=== PATIENT | female | born 1970 | race Caucasian/White ===

== ENCOUNTER 2020-02-29 14:03 | Outpatient (REF) | payer MEDICAID, SELFPAY | END 2020-02-29 14:04 | disposition home or self-care (01) | LOC: HO.LAB 14:03 | PROVIDERS: Visit Provider Internal Medicine | DX: Z20.828 Contact with and (suspected) exposure to other viral communicable diseases (principal) | CPT/HCPCS: C9803; U0003 ==

== ENCOUNTER 2020-09-14 04:04 | Emergency (ER) | payer MEDICAID, SELFPAY ==
--- NOTE | 2020-09-14 | ECG_ITS ---
Test Reason : CHESTPAIN Blood Pressure : / mmHG Vent. Rate : 051 BPM Atrial Rate : 051 BPM P-R Int : 198 ms QRS Dur : 104 ms QT Int : 466 ms P-R-T Axes : 031 009 028 degrees QTc Int : 429 ms Sinus bradycardia Otherwise normal ECG No previous ECGs available Referred By: Generic ED Physician Electronically Signed By:YANNI EDDY MD
--- NOTE | ~2020-09-14 | CT_ITS ---
EXAMINATION: CT ABDOMEN AND PELVIS WITH CONTRAST CLINICAL INFORMATION: 49-year-old female with epigastric/right upper quadrant pain. COMPARISON: None TECHNIQUE: Multidetector volumetric images were obtained from the superior aspect of the liver through the pubic symphysis following administration 85 mL of Omnipaque 350 intravenous contrast. Sagittal and coronal reformatted images were obtained on the technologist's workstation. This CT examination was performed using dose optimization techniques as appropriate, variously including the following: *Automated exposure control *Adjustment of mA and/or kV according to patient size (this includes techniques or standardized protocols for targeted exams where dose is matched to indication/reason for exam; i.e. extremities or head) *Use of iterative reconstruction technique DLP: 930 mGy-cm FINDINGS: Visualized lung bases are well aerated. A few 1 mm pulmonary nodules are noted. The liver demonstrates normal size, contour and attenuation. The gallbladder is surgically absent. The pancreas, spleen and adrenal glands are unremarkable. The kidneys are normal in size and demonstrate symmetric enhancement status post IV contrast administration. No renal calculi or hydronephrosis of either kidney. Surgical changes of the stomach consistent with gastric bypass. Normal caliber loops of small and large bowel. Normal appendix. Normal caliber abdominal aorta. No retroperitoneal lymphadenopathy. Tiny fat-containing umbilical hernia. Scattered surgical clips of the abdominal wall. The bladder is normal in appearance. Unremarkable CT appearance of the uterus. No pelvic lymphadenopathy. Mild diffuse degenerative changes of the spine. CT/CT abdomen pelvis w con IMPRESSION: 1. No CT evidence for acute abnormality within the abdomen or pelvis. 2. A few 1 mm pulmonary nodules are noted within the lung bases. According to the UPDATED 2017 Fleischner Society recommendations, the advised follow-up imaging for solid nodules < 6 mm is: LOW RISK PATIENT: No routine follow-up. HIGH RISK PATIENT: Optional CT at 12 months.
[2020-09-14 04:13] VITALS: BP 125/63; PULSE 62; RESP 16; O2SAT 99; BMI 36.3
--- NOTE | 2020-09-14 04:26 | ED.CHESTPAIN ---
HPI - Chest Pain General Chief Complaint: Chest Pain Stated Complaint: SOB/chest pain Time Seen by Provider: 09/14/20 04:26 Source: patient History of Present Illness HPI narrative: 49-year-old female with history of gastric bypass and cholecystectomy who presents with epigastric pain that she describes as sharp in nature and radiating into the back and initially was rated as a 10/10 and associated with some nausea and states that the shortness of breath that she had was secondary to the pain. In addition, she experience some mild dizziness but at this time states that all of her symptoms have somewhat resolved. 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 Otherwise, she denies any fever, chills, sore throat, cough. Related Data Previous Rx's Medication Instructions Recorded omeprazole 40 mg PO DAILY 30 Days #30 cap 09/14/20 Allergies Allergy/AdvReac Type Severity Reaction Status Date / Time iron Allergy Rash Verified 09/14/20 04:13 Review of Systems Review of Systems: Pertinent positives and negatives as stated in HPI 10 point review of systems otherwise negative. PMFSH Past Medical History Source: nursing notes reviewed Social History Social History Alcohol intake: never Smoked in Last 30 Days: No Use of substances other than those prescribed or required for medical reasons: No Advance Directives: No Advance Directives Information Provided: No Patient : No Physical Exam Vital Signs: Vital Signs: Last Vital Signs Pulse 52 09/14/20 06:00 Resp 16 09/14/20 06:00 BP 106/61 09/14/20 06:00 Pulse Ox 98 09/14/20 06:00 Body Mass Index 36.3 VITAL SIGNS: Reviewed. GENERAL: Well developed, well nourished, in no acute distress. HEAD: Normocephalic/atraumatic EYES: PERRLA, EOMI OROPHARYNX: no oral lesions noted, posterior pharynx clear NECK: Supple, no adenopathy LUNGS: Normal breath sounds. No adventitious sounds or accessory muscle use. SpO2<99> CARDIOVASCULAR: Regular rate and rhythm without noted murmurs, no JVD or lower extremity edema. ABDOMEN: Soft, tenderness on palpation at the epigastric without rebound, non-distended with bowel sounds. SKIN: Inspection of the skin reveals no rashes NEUROLOGIC: Alert and oriented x 4. Strength and sensation to light touch were grossly intact x 4. Course Course Course Narrative: 49-year-old female with history and clinical presentation suggestive of possible SBO, pancreatitis, acid reflux but doubt cardiopulmonary etiology. Review of all investigations negative for any acute findings but on re-evaluation after patient received a medication she states that her pain has completely resolved. All results were discussed with her at bedside and she will be treated for presumptive of acid reflux and be provided with a prescription for acid control. She was encouraged to follow-up with her primary care provider. MDM - Chest Pain Lab Data Result diagrams: 09/14/20 04:43 09/14/20 04:43 Labs: Lab Results 09/14/20 09/14/20 09/14/20 Range/Units 04:43 04:43 04:43 WBC 7.1 (4.8-10.8) X10*3/uL RBC 4.46 (4.20-5.50) X10*6/uL Hgb 11.6 L (12.0-16.0) g/dl Hct 36.1 L (37-47) % MCV 80.9 (80-98) fL MCH 26.0 L (27.0-33.0) pg MCHC 32.1 (31.0-35.0) g/dl RDW 13.5 (11.0-16.0) % Plt Count 298 (160-400) X10*3/uL MPV 10.4 (9.4-12.3) fL Immature Gran % (Auto) 0.1 (0.0-0.4) % Neut % (Auto) 63.1 (45-73) % Lymph % (Auto) 24.3 (20-40) % [place] % (Auto) 7.2 (2-11) % Eos % (Auto) 4.5 H (0-4) % Baso % (Auto) 0.8 (0-2) % Lymph # (Auto) 1.7 (1.2-4.9) X10*3/uL [place] # (Auto) 0.5 (0.1-1.2) X10*3/uL Eos # (Auto) 0.3 (0.0-0.4) X10*3/uL Baso # (Auto) 0.1 (0.0-0.2) X10*3/uL Abs Immat Gran (auto) 0.01 (0.00-0.03) X10*3/uL Absolute Neuts (auto) 4.5 (2.0-8.3) X10*3/uL Absolute Nucleated RBC 0.000 (0.0-0.012) X10*3/uL Nucleated RBC % (auto) 0.0 (0.0-0.2) /100WBC PT 10.9 (9.9-13.0) SEC INR 1.0 (0.9-1.1) Sodium 139 (135-145) mmol/L Potassium 4.0 (3.3-5.1) mmol/L Chloride 106 (96-108) mmol/L Carbon Dioxide 26 (22-29) mmol/L Anion Gap 11 L (12-20) BUN 15 (9-16) mg/dL Creatinine 0.86 (0.5-1.4) mg/dL Estim Creat Clear Calc 94.2 Estimated GFR > 60 Random Glucose 93 (60-115) mg/dL Calcium 8.7 (8.4-10.2) mg/dL Total Bilirubin 0.4 (0.0-1.0) mg/dL AST 81 H (5-31) U/L ALT 43 H (0-31) U/L Alkaline Phosphatase 64 (39-117) U/L Troponin I High Sens (<3.5-17.0) ng/L Total Protein 6.6 (6.5-8.0) g/dL Albumin 3.6 (3.5-5.0) g/dL Lipase 52 (8-78) U/L Urine Color Urine Appearance Urine pH (5.0-8.0) Ur Specific [place] (1.005-1.025) Urine Protein (NEG-TRACE) MG/DL Urine Glucose (UA) (NEG) MG/DL Urine Ketones (NEG) MG/DL Urine Blood (NEG) Urine Nitrite (NEG) Ur Leukocyte Esterase (NEG) Urine RBC (0) /HPF Urine WBC (0-4) /HPF Ur Squamous Epith Cells /LPF Urine Bacteria /LPF Urine Mucus /LPF Urine Test (NEGATIVE) 09/14/20 09/14/20 09/14/20 Range/Units 04:43 05:08 05:08 WBC (4.8-10.8) X10*3/uL RBC (4.20-5.50) X10*6/uL Hgb (12.0-16.0) g/dl Hct (37-47) % MCV (80-98) fL MCH (27.0-33.0) pg MCHC (31.0-35.0) g/dl RDW (11.0-16.0) % Plt Count (160-400) X10*3/uL MPV (9.4-12.3) fL Immature Gran % (Auto) (0.0-0.4) % Neut % (Auto) (45-73) % Lymph % (Auto) (20-40) % [place] % (Auto) (2-11) % Eos % (Auto) (0-4) % Baso % (Auto) (0-2) % Lymph # (Auto) (1.2-4.9) X10*3/uL [place] # (Auto) (0.1-1.2) X10*3/uL Eos # (Auto) (0.0-0.4) X10*3/uL Baso # (Auto) (0.0-0.2) X10*3/uL Abs Immat Gran (auto) (0.00-0.03) X10*3/uL Absolute Neuts (auto) (2.0-8.3) X10*3/uL Absolute Nucleated RBC (0.0-0.012) X10*3/uL Nucleated RBC % (auto) (0.0-0.2) /100WBC PT (9.9-13.0) SEC INR (0.9-1.1) Sodium (135-145) mmol/L Potassium (3.3-5.1) mmol/L Chloride (96-108) mmol/L Carbon Dioxide (22-29) mmol/L Anion Gap (12-20) BUN (9-16) mg/dL Creatinine (0.5-1.4) mg/dL Estim Creat Clear Calc Estimated GFR Random Glucose (60-115) mg/dL Calcium (8.4-10.2) mg/dL Total Bilirubin (0.0-1.0) mg/dL AST (5-31) U/L ALT (0-31) U/L Alkaline Phosphatase (39-117) U/L Troponin I High Sens < 3.5 (<3.5-17.0) ng/L Total Protein (6.5-8.0) g/dL Albumin (3.5-5.0) g/dL Lipase (8-78) U/L Urine Color DARK YELLOW Urine Appearance CLEAR Urine pH 7.0 (5.0-8.0) Ur Specific [place] 1.020 (1.005-1.025) Urine Protein NEG (NEG-TRACE) MG/DL Urine Glucose (UA) NEG (NEG) MG/DL Urine Ketones NEG (NEG) MG/DL Urine Blood TRACE (NEG) Urine Nitrite NEG (NEG) Ur Leukocyte Esterase NEG (NEG) Urine RBC 1-4 (0) /HPF Urine WBC 0-2 (0-4) /HPF Ur Squamous Epith Cells TRACE /LPF Urine Bacteria NONE /LPF Urine Mucus 1+ /LPF Urine Test NEGATIVE (NEGATIVE) ECG Data ECG #1: Attestation: I personally reviewed and interpreted this ECG as follows: Prior ECG tracings: not available for review Interpretation: sinus bradycardia, HR -51, no evidence acute ischemia, MN / QRS /QTC are within normal limits. Discharge Plan Discharge Clinical Impression: Atypical chest pain, GERD (gastroesophageal reflux disease) Patient Disposition: Home, Self-Care Instructions: Diet for Stomach Ulcers and Gastritis (ED), Gastroesophageal Reflux Disease (ED) Additional Instructions: Follow-up with your primary care provider in the next 2-3 days for re-evaluation and further outpatient management. Return to the ER for acute worsening of your symptoms. Prescriptions: New omeprazole 40 mg capsule,delayed release(DR/EC) 40 mg PO DAILY 30 Days Qty: 30 RF: 0 Referrals: Physician,Unknown [Primary Care Provider] - 2 days
[2020-09-14 04:47] VITALS: BP 108/50; PULSE 57; RESP 17; O2SAT 99
[2020-09-14 04:48] LABS: MANUAL DIFF FLAG NO
[2020-09-14 04:49] LABS: Basophils Absolute Auto 0.1 X10*3/uL (0.0-0.2); Basophils Percent Auto 0.8 % (0-2); Eosinophils Absolute Auto 0.3 X10*3/uL (0.0-0.4); Eosinophils Percent Auto 4.5 % (0-4); Hematocrit 36.1 % (37-47); Hemoglobin 11.6 g/dl (12.0-16.0); Imm Gran Abs Auto 0.01 X10*3/uL (0.00-0.03); Imm Gran Pct Auto 0.1 % (0.0-0.4); Lymphocytes Absolute Auto 1.7 X10*3/uL (1.2-4.9); Lymphocytes Percent Auto 24.3 % (20-40); Mean Corpuscular HGB Conc 32.1 g/dl (31.0-35.0); Mean Corpuscular Volume 80.9 fL (80-98); Mean Platelet Volume 10.4 fL (9.4-12.3); Monocytes Absolute Auto 0.5 X10*3/uL (0.1-1.2); Monocytes Percent Auto 7.2 % (2-11); Neutrophils Absolute Auto 4.5 X10*3/uL (2.0-8.3); Neutrophils Percent Auto 63.1 % (45-73); Platelet Count 298 X10*3/uL (160-400); Red Blood Count 4.46 X10*6/uL (4.20-5.50); Red Cell Distribution Width 13.5 % (11.0-16.0); White Blood Count 7.1 X10*3/uL (4.8-10.8)
[2020-09-14 05:09] LABS: Prothrombin Time 10.9 SEC (9.9-13.0)
[2020-09-14 05:19] LABS: Glucose Urine UA NEG (NEG); Leukocyte Esterase Urine NEG (NEG); Nitrite Urine NEG (NEG); Urine Blood TRACE (NEG); Urine Ketones NEG (NEG); Urine Protein NEG (NEG-TRACE)
[2020-09-14 05:21] LABS: Alanine Aminotransferase 43 U/L (0-31); Albumin Level 3.6 g/dL (3.5-5.0); Alkaline Phosphatase 64 U/L (39-117); Anion Gap 11 (12-20); Aspartate Amino Transferase 81 U/L (5-31); Bilirubin Total 0.4 mg/dL (0.0-1.0); Blood Urea Nitrogen 15 mg/dL (9-16); Calcium 8.7 mg/dL (8.4-10.2); Carbon Dioxide 26 mmol/L (22-29); Chloride 106 mmol/L (96-108); Creatinine Clr Calc Pharmacy 94.2; Estimated Glomerular Filt Rate > 60; Glucose Random 93 mg/dL (60-115); Lipase 52 U/L (8-78); Sodium 139 mmol/L (135-145); Total Protein 6.6 g/dL (6.5-8.0)
[2020-09-14 05:21] LABS: Appearance Urine CLEAR; Color Urine DARK YELLOW
[2020-09-14] MEDS: Acetaminophen 325 MG TABLET 975 MG PO (05:22)
[2020-09-14] MEDS: Magnesium Hydrox/Alum Hydrox 30 ML ORAL.SUSP PO (05:23)
[2020-09-14] MEDS: Ketorolac Tromethamine 15 MG/ML VIAL IVPUSH (05:23)
[2020-09-14] MEDS: Lidocaine HCl Viscous 2 % 15 ML SOLUTION 10 ML MUCOUS MEM (05:23)
[2020-09-14 05:24] LABS: Troponin-I High Sensitivity < 3.5 ng/L (<3.5-17.0)
[2020-09-14 05:33] LABS: Mucus Urine 1+ /LPF; Squamous Epithelial Cell Urine TRACE /LPF; UPreg QC Valid YES; Urine Pregnancy NEGATIVE (NEGATIVE); WBC Urine 0-2 /HPF (0-4)
[2020-09-14 05:45] VITALS: BP 109/56; PULSE 50; RESP 18
[2020-09-14 05:46] VITALS: BP 109/56; PULSE 50; RESP 16; O2SAT 99
[2020-09-14 05:47] VITALS: BP 109/56; PULSE 50; RESP 16
[2020-09-14 06:00] VITALS: BP 106/61; PULSE 52; RESP 16; O2SAT 98
[2020-09-14] MEDS: iohexoL 350 MG/ML 100 ML INFUS..BTL 85 ML IV (06:26)
--- NOTE | 2020-09-14 07:12 | PC.NURSE ---
REPORT TAKEN FROM [facility] PT HERE FOR EPIGASTRIC PAIN, HX OF GALLBLADDER ISSUES AND GASTRIC SLEEVE IN PAST. BLOOD WORK NEGATIVE THUS FAR, AWAITING RESULTS OF CT SCAN. PT W NO C/O PAIN ATT, FEELS BETTER W ADMINISTERED MEDICATIONS. WCTM.
== END 2020-09-14 07:47 | disposition home or self-care (01) ==
PROVIDERS: Emergency Provider Student in an Organized Health Care Education/Training Program
DX: R07.89 Other chest pain (principal); K21.9 Gastro-esophageal reflux disease without esophagitis; R06.02 Shortness of breath; Z98.84 Bariatric surgery status; Z90.49 Acquired absence of other specified parts of digestive tract
CPT/HCPCS: 36415; 74177; 80053; 81001; 81025; 83690; 84484; 85025; 85610; 93005; 96374; 99285; J1885; Q9967

== ENCOUNTER 2020-10-22 20:51 | Emergency (ER) | payer MEDICAID, SELFPAY ==
[2020-10-22 21:01] VITALS: BP 141/79; PULSE 65; RESP 15; TEMP 36.9; O2SAT 97; BMI 37.5
--- NOTE | 2020-10-22 21:01 | ED_ITS ---
HPI - Allergic Reaction General Chief complaint: Allergic Reaction Stated complaint: allergic reaction Time Seen by Provider: 10/22/20 21:01 Source: patient Mode of arrival: ambulatory Limitations: no limitations History of Present Illness HPI narrative: 4 hours after eating a salad at [employer] she started to have itchy throat, swollen eyes. patient denies new medication or shampoo. Denies nuts, shrimp or strawberries. MD complaint: allergic reaction and facial swelling Onset (ago): hour(s) Exposure: unknown Symptoms: facial swelling Severity: moderate Treatment prior to arrival: benadryl Related Data Previous Rx's Medication Instructions Recorded omeprazole 40 mg capsule,delayed 40 mg PO DAILY 30 Days #30 cap 09/14/20 release diphenhydramine HCl 25 mg capsule 25 mg PO TID PRN #20 cap 10/22/20 (Benadryl) prednisone 20 mg tablet 60 mg PO DAILY #12 tab 10/22/20 Allergies Allergy/AdvReac Type Severity Reaction Status Date / Time iron Allergy Rash Verified 09/14/20 04:13 Review of Systems Constitutional: Constitutional: Reports no additional constitutional complaints Eyes: Eyes: Reports no additional eye complaints ENT: Denies dizziness Cardiovascular: Cardiovascular: Reports no additional cardiovascular complaints Respiratory: Respiratory: Reports as per HPI Gastrointestinal: Gastrointestinal: Reports no additional gastrointestinal complaints Genitourinary: Genitourinary: Reports no additional female genitourinary complaints Musculoskeletal: Musculoskeletal: Reports no additional musculoskeletal complaints Integumentary/Breasts: Skin/Breast: Denies rash Neurologic: Reports system reviewed and no additional complaints, except as documented, Denies dizziness and Denies Sensory deficit (Neuro) Psychiatric: Psychiatric: Denies anxiety [facility] Social History Social History Alcohol intake: never Advance Directives: No Advance Directives Information Provided: No Physical Exam Vital Signs: Vital Signs: Last Vital Signs Temp 97.4 F 10/22/20 22:20 Pulse 54 10/22/20 22:20 Resp 11 L 10/22/20 22:20 BP 129/65 10/22/20 22:20 Pulse Ox 99 10/22/20 22:20 Body Mass Index 37.5 Const: General: healthy appearing Nutritional Appearance: average body habitus Orientation/consciousness: oriented to person and patient oriented x3 Limitations: no limitations HENMT: Other: swollen eyes, chymosis of sclera, no tongue or uvula swelling Ears: external ears normal General nose exam: Other nasal findings present (red and rhinorrhea) Mouth: Normal oral and palatal mucosa present and oropharynx normal Throat: Yes posterior oropharynx normal Eyes: General: appearance normal, both eyes and all related structures Neck: Other: supple Neck: Yes normal visual inspection Chest: Chest palpation & inspection: normal inspection of the chest Resp: Auscultation: clear to auscultation bilaterally Cardio: Jugular venous distension: no JVD Rate: regular rate Rhythm: regular rhythm Heart sounds: S1 normal heart sound present and S2 normal heart sound present GI: Inspection: Yes normal to inspection Palpation (GI): Soft to palpation, nontender and No hepatosplenomegaly present Auscultation: normal bowel sounds : General: Yes no CVA tenderness Back/Spine/Pelvis: Back: no CVA tenderness Skin: General skin exam: no rashes or lesions noted Neuro: General: oriented to person and patient oriented x3 Cranial nerves: Yes CN's II-XII intact bilaterally Motor exam (neuro): 5/5 motor strength present throughout Sensory Exam: No Sensory deficit (Neuro) Extrem: General: Yes normal to inspection Psych: Appearance: grossly normal Course Reevaluation(s) Reevaluation #1: eye swelling has improved including chemosis. Lungs are clear, no tongue or uvula swelling Time: 23:06 Discharge Plan Discharge Clinical Impression: Allergic reaction Patient Disposition: Home, Self-Care Instructions: General Allergic Reaction (ED) Prescriptions: New prednisone 20 mg tablet 60 mg PO DAILY Qty: 12 RF: 0 diphenhydramine HCl [Benadryl] 25 mg capsule 25 mg PO TID PRN (Reason: allergic reaction) Qty: 20 RF: 0 No Action omeprazole 40 mg capsule,delayed release(DR/EC) 40 mg PO DAILY 30 Days Qty: 30 RF: 0 Referrals: Physician,Unknown [Primary Care Provider] - 2 days
[2020-10-22 21:14] VITALS: BP 130/65; PULSE 55; RESP 13; TEMP 36.8; O2SAT 97
[2020-10-22] MEDS: diphenhydrAMINE HCL 50 MG/ML VIAL IVPUSH (21:19)
[2020-10-22] MEDS: methylPREDNISolone Sod Succ 125 MG/2 ML VIAL IVPUSH (21:19)
[2020-10-22 22:20] VITALS: BP 129/65; PULSE 54; RESP 11; TEMP 36.3; O2SAT 99
== END 2020-10-22 23:43 | disposition home or self-care (01) ==
PROVIDERS: Emergency Provider Emergency Medicine
DX: L50.0 Allergic urticaria (principal); R22.9 Localized swelling, mass and lump, unspecified; Z79.899 Other long term (current) drug therapy
CPT/HCPCS: 96374; 96375; 99283; 99284; J1200; J2930